=== PATIENT | male | born 2000 | race Caucasian/White ===

== ENCOUNTER 2023-02-11 09:05 | Emergency (ER) | payer OTHER, SELFPAY ==
--- NOTE | 2023-02-11 09:07 | ED.GENADUL1 ---
HPI - General Adult General Chief complaint: Extremity Injury, Upper Stated complaint: R HAND POSSIBLY BROKEN/FEW SCRAPES/CUTS Time Seen by Provider: 02/11/23 09:07 History of Present Illness HPI narrative: Pt presents to the emergency department complaining of right hand pain. Patient states he was punching a machine and accidentally hit the post. This happened last night. He complains of pain to the 4th MCP where he also sustained a laceration. Patient denies this pain from the tooth. He denies any numbness. States the pain is very bad worse with movement. His tetanus shot is not up-to-date. He states he had previous fractures to that area. He denies any fever, chills, or drainage.He has not taking anything at home for pain. Related Data Previous Rx's Medication Instructions Recorded amoxicillin 875 mg-potassium 1 tab PO Q12H #20 tabs 02/11/23 clavulanate 125 mg tablet ibuprofen 800 mg tablet 800 mg PO Q8H PRN pain #20 tabs 02/11/23 Allergies Allergy/AdvReac Type Severity Reaction Status Date / Time sulfamethoxazole Allergy Intermediate Verified 02/11/23 09:17 [From Bactrim] trimethoprim [From Bactrim] Allergy Intermediate Verified 02/11/23 09:17 Review of Systems ROS Status of ROS 10 or more systems reviewed and unremarkable except as noted in history and below [facility] Social History Smoking status: Light tobacco smoker Exam Narrative Exam Narrative: Nurses notes and vital signs reviewed and patient is not hypoxic. General: Nontoxic, Well-appearing and in no apparent distress. Skin: Warm, dry, no pallor noted. No Rash Head: Normocephalic, atraumatic. Neck: Supple, non-tender. Eye: Pupils are equal, round and EOMI. No scleral icterus. Ears, Nose, Mouth, and Throat: Oral mucosa is moist Cardiovascular: Regular Rate and Rhythm without murmur, gallop or rub. Respiratory: No accessory muscle use or respiratory distress. Lungs are clear to auscultation, no wheezing, rales or rhonchi Back: No midline thoracic or lumbar vertebral tenderness. No CVA tenderness Musculoskeletal: 5 millimeter laceration to the dorsum hand over the MCP. There is moderate amount of edema, no erythema, or drainage noted. Capillary refill +2. Radial pulse +2, normal sensation to the thumb, middle finger, and pinky. He is able to oppose all digits with thumb. There is no malrotation. Motion is limited by pain. no calf or popliteal tenderness, no lower extremity edema/swelling Neurological: A&O x4. No cranial nerve dysfunction observed. No truncal ataxia. Moves all extremities. Sensation intact. Psychiatric: Cooperative and interactive. Normal mood and affect. Constitutional Vital Signs, click to edit/add: Last Vital Signs Temp 98.3 F 02/11/23 09:12 Pulse 88 02/11/23 10:19 Resp 18 02/11/23 10:19 BP 142/89 H 02/11/23 10:19 Pulse Ox 99 02/11/23 10:19 O2 Del Method Room Air 02/11/23 10:19 Course Vital Signs Vital signs: Vital Signs Temperature 98.3 F 02/11/23 09:12 Pulse Rate 99 H 02/11/23 09:12 Respiratory Rate 16 02/11/23 09:12 Blood Pressure 121/77 02/11/23 09:12 Pulse Oximetry 99 02/11/23 09:12 Oxygen Delivery Method Room Air 02/11/23 09:12 Temperature 98.3 F 02/11/23 09:12 Pulse Rate 88 02/11/23 10:19 Respiratory Rate 18 02/11/23 10:19 Blood Pressure 142/89 H 02/11/23 10:19 Pulse Oximetry 99 02/11/23 10:19 Oxygen Delivery Method Room Air 02/11/23 10:19 Medical Decision Making MDM Narrative Medical decision making narrative: 3 views x-ray of the hand interpreted by me as no fracture seen. Patient was prescribed Motrin, and Augmentin. Tetanus shot was given. Patient was instructed on wound care. At this time the patient is without objective evidence of an acute process requiring hospitalization or inpatient management. The patient has remained hemodynamically stable. No additional indication for emergent studies at this time. I answered all questions. Discussed discharge instructions including standard anticipatory guidance and what should prompt a return to the emergency department, including if they get worse are not getting better or develops any new or concerning symptoms. I've given them specific time frame in which to follow-up, and who to follow-up with. The patient demonstrates understanding. Patient is nontoxic and stable for discharge with outpatient follow-up. This note was created with the assistance of a speech recognition program. Although the intention is to generate documents that actually reflects the content of the visit, no guarantees can be provided that every mistake has been identified and corrected by editing. Discharge Plan Discharge Chief Complaint: Extremity Injury, Upper Clinical Impression: Laceration of hand with infection, Contusion of hand Patient Disposition: Home, Self-Care Time of Disposition Decision: 09:45 Condition: Good Mode of Transportation: Private Vehicle Prescriptions / Home Meds: New amoxicillin-pot clavulanate 875-125 mg tablet 1 tab PO Q12H Qty: 20 0RF ibuprofen 800 mg tablet 800 mg PO Q8H PRN (Reason: pain) Qty: 20 0RF Instructions: Laceration Without Closure (ED) Stand Alone Forms: Portal Instructions Referrals: SWEETIE MEDINA APRN [Physician] - 1 week Physician,Non-Staff, MD [Primary Care Provider] - 1 week Discharge Date/Time: 02/11/23 10:20
[2023-02-11 09:12] VITALS: BP 121/77; PULSE 99; RESP 16; TEMP 36.8; O2SAT 99; BMI 23.7
--- NOTE | 2023-02-11 09:19 | XR_ITS ---
[facility] [id number] Patient Name: FE RODRIGUEZ MRN: [id number] date: 2000 Sex: M Assigned Patient Location: ER Current Patient Location: ED.MAIN Accession/Order Number: [id number] Exam Date: 02/11/2023 09:33 Report Date: 02/11/2023 10:00 At the request of: EZIO ROACH Procedure: XR hand RT min 3V PROCEDURE: XR hand RT min 3V HISTORY: injury ; acute right hand pain and swelling after punching object COMPARISON: None. FINDINGS: BONES:Small area of cortical thickening or osseous protuberance along anterior distal margin of fifth metacarpal may represent sequela of remote injury. No fracture or dislocation. No significant degenerative joint disease. SOFT TISSUES:Soft tissue swelling posterior to the metacarpal phalangeal joints. EFFUSION:None visible. OTHER: Negative. XR/XR hand RT min 3V IMPRESSION: 1. No acute bone abnormality. 2. Distal dorsal soft tissue swelling. Electronically authenticated by: VANNESSA NAVARRO Date: 02/11/2023 10:00
[2023-02-11] MEDS: ADACEL DIPH,PERTUSS(ACELL),TET VAC/PF 0.5 ML ADULT SYRINGE IM (09:55)
[2023-02-11] MEDS: IBUPROFEN 400 MG TABLET 800 MG PO (10:15)
[2023-02-11 10:19] VITALS: BP 142/89; PULSE 88; RESP 18; O2SAT 99
== END 2023-02-11 10:20 | disposition home or self-care (01) ==
PROVIDERS: Emergency Provider Emergency Medicine
DX: S60.221A Contusion of right hand, initial encounter (principal); S61.411A Laceration without foreign body of right hand, initial encounter; L08.9 Local infection of the skin and subcutaneous tissue, unspecified; W22.8XXA Striking against or struck by other objects, initial encounter; F17.210 Nicotine dependence, cigarettes, uncomplicated; Z23 Encounter for immunization
CPT/HCPCS: 73130; 90471; 90715; 99284